=== PATIENT | female | born 1940 | race Caucasian/White ===

== ENCOUNTER 2018-03-09 14:17 | Observation (INO) ==
[2018-03-09] MEDS ORDERED: Morphine Sulfate Inj 2 MG/ML Vial IV.PUSH ONE (14:50)
--- NOTE | 2018-03-09 14:57 | ED ---
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 The patient reports that at around 11:00 AM the patient was sitting on her bed when she reached behind her and attempting to hang something on the back of her wheelchair she fell forward, and noticed immediate pain to her right shoulder. She denies head injury or LOC. She denies any other injuries. Her pain is 9 out of 10, constant, worse with movements and palpation. She is experiencing a slight numbness/tingling sensation in her right hand which is new for her. She denies head neck or back pain or injury. No chest pain or dyspnea. No abdominal pain. She states that she uses her right arm primarily to care for herself and her . Related Data Home Medications Medication Instructions Recorded Confirmed No Known Home Medications 03/09/18 03/09/18 Allergies Allergy/AdvReac Type Severity Reaction Status Date / Time No Known Allergies Allergy Verified 03/09/18 14:50 Review of Systems ROS: all other systems reviewed are negative [facility] Medical History Medical History Polio (Acute) Surgical History Surgical History History of hip surgery (Acute) Social History Social History Substance History: No History of Abuse Second Hand Smoke Exposure: No Smoking Status: Former smoker Tobacco Type: Cigarettes How Often Do You Have a Drink Containing Alcohol: Never Recent Travel in [facility] within the Last 8 Weeks: No Recent Out of Country Travel within the Last 8 Weeks: No Immunization History Tetanus Immunization: Unsure Exam Narrative Exam Narrative: GENERAL: Small for age with chronic upper and lower extremity limb deformities secondary to polio at the age of 4, awake, alert, pleasant, no apparent distress. SKIN: Focused skin assessment warm/dry. Diffuse ecchymosis and significant edema to the right shoulder. No lacerations or abrasions. HEAD: Atraumatic. Normocephalic. EYES: Pupils equal and round. No scleral icterus. No injection or drainage. ENT: No nasal bleeding or discharge. Mucous membranes pink and moist. NECK: Trachea midline. No JVD. CARDIOVASCULAR: Regular rate and rhythm. Distal pulses brisk and equal bilaterally. RESPIRATORY: No accessory muscle use. Clear to auscultation. Breath sounds equal bilaterally. GASTROINTESTINAL: Abdomen soft, non-tender, nondistended. MUSCULOSKELETAL: Chronic limb deformities in bilateral upper and lower extremities. Significant edema to the right shoulder with diffuse ecchymosis and significant tenderness to the shoulder and humerus. No tenderness to the right elbow or right hand. The rest of her joints and extremities show chronic deformities without tenderness or edema. NEUROLOGICAL: Awake and alert. No obvious cranial nerve deficits. Motor grossly within normal limits. Normal speech. PSYCHIATRIC: Appropriate mood and affect; insight and judgment normal. Procedures Orthopedic Joint Reduction Right Shoulder: Time Out Performed: Yes Side: right Joint Reduction Location: shoulder Analgesia: other (4mg IV Morphine) Shoulder Technique Used (if applicable): scapula manipulation and external rotation Technique Used: direct manipulation Post-Reduction Neuro Exam: intact Post-Reduction Vascular Exam: intact Post Reduction X-Ray Obtained: Yes Post Reduction X-Ray Results: reduced Splint Applied: Yes Patient Tolerated Procedure: well Course Initial Documented Vital Signs Temperature 97.8 F 03/09/18 14:38 Pulse Rate 68 03/09/18 14:38 Respiratory Rate 18 03/09/18 14:38 Blood Pressure 127/78 03/09/18 14:38 Pulse Oximetry 100 03/09/18 14:38 Last Documented Vital Signs Temperature 97.8 F 03/09/18 14:38 Pulse Rate 68 03/09/18 17:30 Respiratory Rate 18 03/09/18 17:30 Blood Pressure 158/77 H 03/09/18 17:30 Pulse Oximetry 99 03/09/18 17:59 Medical Decision Making MDM Narrative Medical decision making narrative: Vital signs reviewed and are within normal limits. Right humerus and right shoulder x-ray shows anterior dislocation. Patient was given 4 mg of IV morphine shortly after arriving to the emergency department. She was made aware of x-ray findings. I attempted to manipulate the right upper extremity and right shoulder while the patient was awake, not under sedation, and by gentle traction with adduction and external rotation, the right shoulder dislocation was felt to be reduced. Post reduction the patient had brisk distal pulses and improved sensation to her hand. The right upper extremity was placed in a sling and swath, however there is a moderate amount of crepitus palpated at the right shoulder joint. Postreduction x-rays will be ordered. Postreduction x-rays reviewed by me shows that the right shoulder dislocation has been reduced. I do not see an obvious Bankart lesion or Hill-Sachs lesion. Patient is 77 years old with history of polio, uses a wheelchair to get around, uses her right upper extremity predominantly to care for herself lives with her who has dementia and diminished vision, is his primary check weigher for her . Because of these issues and the fact that the patient has a right upper extremity injury/right shoulder dislocation that is now placed in a sling and swath, the patient will be unable to care for herself or her at home. Her 's brother has actually picked him up and took him to his own house. Patient will not be able to care for herself if discharged home, and because of this she will be admitted to the medical service for case management assessment for either custodial placement or home health arrangement. The patient is amenable to this plan. Case discussed with hospitalist Dr. Ascencio who will admit patient to his service for observation and case management. Medical Screen Exam Complete: Yes Emergency Medical Condition: Yes Differential Diagnosis Differential Diagnosis: Proximal humerus fracture, shoulder dislocation, shoulder fracture Lab Data Result diagrams: 03/09/18 15:30 03/09/18 15:30 Lab Results 03/09/18 03/09/18 03/09/18 Range/Units 15:26 15:30 15:30 WBC 8.5 (4.0-11.0) th/mm3 RBC 4.36 (4.00-5.30) mil/mm3 Hgb 13.7 (11.6-15.3) gm/dL Hct 41.0 (35.0-46.0) % MCV 94.0 (80.0-100.0) fL MCH 31.5 (27.0-34.0) pg MCHC 33.5 (32.0-36.0) % RDW 14.0 (11.6-17.2) % Plt Count 274 (150-450) th/mm3 MPV 8.1 (7.0-11.0) fL PT 10.5 (9.8-11.6) sec INR 1.0 Ratio APTT 27.3 (23.4-31.7) sec Sodium (136-145) meq/L Potassium (3.5-5.1) meq/L Chloride (98-107) meq/L Carbon Dioxide (21.0-32.0) meq/L Anion Gap (5-15) meq/L BUN (7-18) mg/dL Creatinine (0.50-1.00) mg/dL Estimated GFR (>89) mL/min Random Glucose (74-106) mg/dL Calcium (8.5-10.1) mg/dL Total Bilirubin (0.2-1.0) mg/dL AST (15-37) U/L ALT (10-53) U/L Alkaline Phosphatase (45-117) U/L Total Protein (6.4-8.2) g/dL Albumin (3.4-5.0) g/dL Urine Color Yellow (Yellw/Straw) Urine Clarity Hazy H (Clear) Urine pH 7.0 (5.0-8.5) Ur Specific [place] 1.012 (1.002-1.035) Urine Protein Negative (Neg-Trace) mg/dL Urine Glucose (UA) Negative (Negative) mg/dL Urine Ketones 20 (Negative) mg/dL Urine Occult Blood Small H (Negative) Urine Nitrate Negative (Negative) Urine Bilirubin Negative (Negative) Urine Urobilinogen Less than 2 (Less than 2) mg/dL Ur Leukocyte Esterase Negative (Negative) Urine RBC 1 (0-3) /hpf Urine WBC 2 (0-5) /hpf Amorphous Sediment Moderate H (None) /hpf Urine Mucus Few H (Occasional) /lpf Micro UA Comment Culture not ind Ur Microscopic Review Not Reportable Urine Culture Comments Culture not ind 03/09/18 Range/Units 15:30 WBC (4.0-11.0) th/mm3 RBC (4.00-5.30) mil/mm3 Hgb (11.6-15.3) gm/dL Hct (35.0-46.0) % MCV (80.0-100.0) fL MCH (27.0-34.0) pg MCHC (32.0-36.0) % RDW (11.6-17.2) % Plt Count (150-450) th/mm3 MPV (7.0-11.0) fL PT (9.8-11.6) sec INR Ratio APTT (23.4-31.7) sec Sodium 133 L (136-145) meq/L Potassium 3.1 L (3.5-5.1) meq/L Chloride 95 L (98-107) meq/L Carbon Dioxide 30.5 (21.0-32.0) meq/L Anion Gap 8 (5-15) meq/L BUN 8 (7-18) mg/dL Creatinine 0.23 L (0.50-1.00) mg/dL Estimated GFR Greater than 89 (>89) mL/min Random Glucose 122 H (74-106) mg/dL Calcium 8.7 (8.5-10.1) mg/dL Total Bilirubin 0.4 (0.2-1.0) mg/dL AST 20 (15-37) U/L ALT 26 (10-53) U/L Alkaline Phosphatase 86 (45-117) U/L Total Protein 6.9 (6.4-8.2) g/dL Albumin 3.7 (3.4-5.0) g/dL Urine Color (Yellw/Straw) Urine Clarity (Clear) Urine pH (5.0-8.5) Ur Specific [place] (1.002-1.035) Urine Protein (Neg-Trace) mg/dL Urine Glucose (UA) (Negative) mg/dL Urine Ketones (Negative) mg/dL Urine Occult Blood (Negative) Urine Nitrate (Negative) Urine Bilirubin (Negative) Urine Urobilinogen (Less than 2) mg/dL Ur Leukocyte Esterase (Negative) Urine RBC (0-3) /hpf Urine WBC (0-5) /hpf Amorphous Sediment (None) /hpf Urine Mucus (Occasional) /lpf Micro UA Comment Ur Microscopic Review Urine Culture Comments Imaging Data Radiologist's impression: Chest X-Ray 03/09/18 14:50 CONCLUSION: No acute cardiopulmonary disease. Humerus X-Ray 03/09/18 14:50 CONCLUSION: Anterior dislocation of the right shoulder. Shoulder X-Ray 03/09/18 14:50 CONCLUSION: Anterior shoulder dislocation. Shoulder X-Ray 03/09/18 17:02 CONCLUSION: Reduction of the previously seen dislocation. Discharge Plan Discharge Disposition Patient Disposition: ED Admit(ED Internal Use Only) Discharge Condition Condition: Stable Discharge Order Discharge Orders: ED Use Only Admit Order (Routine); Ordered 03/09/18 Ordered By: Yogesh Arevalo Discharge Details Diagnosis: Anterior dislocation of right shoulder, Alteration in self-care ability Physicians Team ED Provider: Yogesh Arevalo Primary Care Provider: UNKNOWN, Attending Provider: Kieran Ascencio Other Providers: Inessa,Inessa Status ED Status: Left Department Discharge Information Discharge Date/Time: 03/09/18 19:03
[2018-03-09 15:57] LABS: Hemoglobin 13.7 gm/dL (11.6-15.3); Mean Corpuscular HGB Conc 33.5 % (32.0-36.0); Mean Corpuscular Hemoglobin 31.5 pg (27.0-34.0); Mean Platelet Volume 8.1 fL (7.0-11.0); Platelet Count 274 th/mm3 (150-450); Red Blood Count 4.36 mil/mm3 (4.00-5.30); White Blood Count 8.5 th/mm3 (4.0-11.0)
[2018-03-09 16:06] LABS: Activated Partial Thrombo Time 27.3 sec (23.4-31.7); Prothrombin Time 10.5 sec (9.8-11.6)
[2018-03-09 16:19] LABS: Amorphous Sediment,Urine Moderate /hpf; Bilirubin,Urine Negative (Negative); Clarity,Urine Hazy (Clear); Color,Urine Yellow (Yellw/Straw); Glucose,Urine (UA) Negative (Negative); Leukocyte Esterase,Urine Negative (Negative); Mucus,Urine Few /lpf (Occasional); Nitrite,Urine Negative (Negative); Specific Gravity,Urine 1.012 (1.002-1.035)
[2018-03-09 16:24] LABS: Albumin 3.7 g/dL (3.4-5.0); Anion Gap 8 meq/L (5-15); Aspartate Aminotransferase 20 U/L (15-37); Blood Urea Nitrogen 8 mg/dL (7-18); Calcium 8.7 mg/dL (8.5-10.1); Carbon Dioxide 30.5 meq/L (21.0-32.0); Chloride 95 meq/L (98-107); Glomerular Filtration Rate Greater Than 89 mL/min (>89); Glucose,Random 122 mg/dL (74-106); Potassium 3.1 meq/L (3.5-5.1); Sodium 133 meq/L (136-145)
[2018-03-09 16:25] LABS: Alanine Aminotransferase 26 U/L (10-53)
[2018-03-09 16:27] LABS: Alkaline Phosphatase 86 U/L (45-117); Total Protein 6.9 g/dL (6.4-8.2)
--- NOTE | 2018-03-09 16:45 | XR ---
EXAM DATE: 03/09/2018 4:38 PM EST AGE/SEX: 77 years / Female INDICATIONS: Pain from twisting motion in right shoulder. CLINICAL DATA: This is the patient's initial encounter. Patient reports that signs and symptoms have been present for 1 day and indicates a pain score of Nonresponsive. MEDICAL/SURGICAL HISTORY: None. None. COMPARISON: No prior exams available for comparison. FINDINGS: There is complete anterior dislocation of the humeral head out of the glenoid. 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 CONCLUSION: Anterior dislocation of the right shoulder. Electronically signed by: Reina Goldman MD Board Certified Radiologist 03/09/2018 4:44 PM EST
--- NOTE | 2018-03-09 16:49 | XR ---
EXAM DATE: 03/09/2018 4:39 PM EST AGE/SEX: 77 years / Female INDICATIONS: Pain from twisting motion in right shoulder. CLINICAL DATA: This is the patient's initial encounter. Patient reports that signs and symptoms have been present for 1 day and indicates a pain score of 10/10. MEDICAL/SURGICAL HISTORY: None. None. COMPARISON: No prior exams available for comparison. FINDINGS: There is complete anterior shoulder dislocation. Significant hypertrophic change is present with deformity of the acromion and distal clavicle probably due to old trauma with dystrophic calcif ications. CONCLUSION: Anterior shoulder dislocation. Electronically signed by: Reina oGldman MD Board Certified Radiologist 03/09/2018 4:48 PM EST
--- NOTE | 2018-03-09 16:49 | XR ---
EXAM DATE: 03/09/2018 4:38 PM EST AGE/SEX: 77 years / Female INDICATIONS: Pain from twisting motion in right shoulder. CLINICAL DATA: This is the patient's initial encounter. Patient reports that signs and symptoms have been present for 1 day and indicates a pain score of 10/10. MEDICAL/SURGICAL HISTORY: None. None. COMPARISON: No prior exams available for comparison. FINDINGS: The lungs are clear without infiltrate, nodule, or mass. There is no appreciable pleural effusion fo r technique. Heart and mediastinum are unremarkable. Significant thoracic scoliosis is seen with mcgovern perimposed degenerative change. There is anterior dislocation of the right shoulder. CONCLUSION: No acute cardiopulmonary disease. Electronically signed by: Reina Goldman MD Board Certified Radiologist 03/09/2018 4:48 PM EST
--- NOTE | 2018-03-09 17:25 | XR ---
EXAM DATE: 03/09/2018 5:21 PM EST AGE/SEX: 77 years / Female INDICATIONS: Post reduction of the right shoulder. CLINICAL DATA: This is the patient's subsequent encounter. Patient reports that signs and symptoms h ave been present for 1 day and indicates a pain score of 7/10. MEDICAL/SURGICAL HISTORY: None. None. COMPARISON: [facility] [place], SHOULDER LIMITED RIGHT 2V, 03/09/2018. . FINDINGS: Previously seen dislocation has been reduced. CONCLUSION: Reduction of the previously seen dislocation. Electronically signed by: Reina Goldman MD Board Certified Radiologist 03/09/2018 5:24 PM EST
[2018-03-09] MEDS ORDERED: Acetaminophen 325 MG Tablet PO PRN (17:34)
[2018-03-09] MEDS ORDERED: Bisacodyl 10 MG Supp RECTAL PRN (17:34)
[2018-03-09] MEDS ORDERED: Temazepam 15 MG Capsule PO PRN (17:34)
--- NOTE | 2018-03-09 18:01 | P.HPIM ---
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 She is able to care for herself and uses a wheelchair to get around. She can not move her legs at baseline and her right arm is the primary one that functions for her to get around. 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 The patient reports that at around 11:00 AM the patient was sitting on her bed when she reached behind her and attempting to hang something on the back of her wheelchair she fell forward onto her out stretched arm, and noticed immediate pain to her right shoulder. She denies head injury or LOC. She denies any other injuries. Her pain is 7 out of 10 following pain medications, worse with movements and palpation. She denies head neck or back pain or injury. No chest pain or dyspnea. No abdominal pain. She states that she uses her right arm primarily to care for herself and her . She was found to have dislocation of her right shoulder. In the ED her shoulder was reset. she is no longer have numbness and tingling in her fingers. - Diagnosis (1) Anterior dislocation of right shoulder (2) Alteration in self-care ability Review of Systems Constitutional: Reports weakness, Denies chills, Denies increased appetite, Denies lack of energy, Denies weight gain Eyes: Denies blind spots, Denies blurry vision, Denies change in vision Ears, Nose, Mouth, and Throat: Denies abnormal hearing, Denies bleeding gums, Denies neck pain, Denies post nasal drip, Denies sore throat Cardiovascular: Denies chest pain, Denies chest pain at rest, Denies shortness of breath Respiratory: Denies chest congestion, Denies cough, Denies shortness of breath, Denies wheezing Gastrointestinal: Denies abdominal pain, Denies nausea, Denies vomiting Musculoskeletal: Reports abnormal walking (Wheelchair-bound due to residual muscle deformities from polio), Reports limited joint movement, Reports muscle cramps, Reports muscle weakness, Reports numbness, Reports radiating pain into limb, Reports stiffness, Reports tingling Skin/Breast: Denies rash Neurologic: Denies abnormal movements, Denies abnormal speech, Denies confusion , Denies dizziness, Denies lack of coordination, Denies localized weakness, Denies seizure-like activity Psychiatric: Denies anxiety, Denies depression PMFSH - History History Provided By: Patient - Medical History Medical History: Medical History (Last Updated 03/09/18 @ 14:40 by Judith Greco RN) Polio - Surgical History Surgical History: Surgical History (Last Updated 03/09/18 @ 14:40 by Judith Greco RN) History of hip surgery - Social History I have reviewed the patient's Social History: Yes - Tobacco History Second Hand Smoke Exposure: No Tobacco Use In Past 30 Days: No Smoking Status: Former smoker Tobacco Type: Cigarettes - Alcohol History How Often Do You Have a Drink Containing Alcohol: Never - Substance Use History Substance History: No History of Abuse - Travel History Recent Travel in the [facility] Within the Last 8 Weeks: No Recent Travel Out of the Country Within the Last 8 Weeks: No - Immunization History Tetanus Immunization: Unsure Medications and Allergies Active Medications: Active Medications Acetaminophen (Tylenol) 650 mg PO Q4H PRN PRN Reason: Temp > 100.4 Hydrocodone Bitart/Acetaminophen ([place] 5/325) 1 tab PO Q4H PRN PRN Reason: PAIN SCALE 6 TO 10 Al Hydroxide/Mg Hydroxide (Milk Of Magnesia Liq) 30 ml PO Q12H PRN PRN Reason: Mild Constipation Bisacodyl (Dulcolax Supp) 10 mg RECTAL DAILY PRN PRN Reason: SEVERE CONSITIPATION Heparin Sodium (Porcine) (Heparin Inj) 5,000 units SQ Q8H NUBIA Sodium Chloride (Ns Inj) 1,000 mls @ 75 mls/hr IV.CONT .[id number] NUBIA Lactulose (Lactulose Liq) 30 ml PO DAILY PRN PRN Reason: SEVERE CONSITIPATION Ondansetron HCl (Zofran Inj) 4 mg IV.PUSH Q6H PRN PRN Reason: NAUSEA OR VOMITING Senna/Docusate Sodium (Simin-Colace) 1 tab PO BID NUBIA Sennosides (Senokot) 17.2 mg PO Q12H PRN PRN Reason: Moderate Constipation Sodium Chloride (Ns Flush) 2 ml IV.FLUSH BID NUBIA Sodium Chloride (Ns Flush) 2 ml IV.FLUSH PRN PRN PRN Reason: FLUSH AFTER USING IV ACCESS Temazepam (Restoril) 15 mg PO HS PRN PRN Reason: INSOMNIA Allergies Allergy/AdvReac Type Severity Reaction Status Date / Time No Known Allergies Allergy Verified 03/09/18 14:50 Home Medications Medication Instructions Recorded Confirmed Type No Known Home Medications 03/09/18 03/09/18 History Exam Vital signs: Vital Signs 03/09/18 14:38 Temperature 97.8 F Pulse Rate 68 Respiratory Rate 18 Blood Pressure 127/78 Pulse Oximetry 100 - Constitutional no acute distress, thin, cooperative - Routine HEENT Exam Head: Present: normocephalic, atraumatic Eye: Present: EOMI, PERRL ENT: Present: mucous membranes moist. Absent: dentition normal - Routine Neck Exam Present: supple, full ROM. Absent: JVD - Routine Chest/Breast/Axilla Exam Chest wall: Absent: tenderness - Routine Respiratory Exam Present: CTA bilaterally. Absent: accessory muscle use, wheezes - Routine Cardiovascular Exam Present: RRR - Routine Abdominal Exam Present: soft, normoactive bowel sounds. Absent: tenderness - Routine Extremities Exam Present: joint swelling. Absent: cyanosis, clubbing, edema Comments: Deformity of the legs bilaterally, weakness of the left shoulder at baseline, right shoulder in sling status post-placement into the joint - Routine Skin Exam Present: intact. Absent: rash - Routine Neurological Exam Present: alert, oriented X3, CN II-XII intact. Absent: moving all extremities ( Her baseline) Results - Labs CBC & Chem 7: 03/09/18 15:30 03/09/18 15:30 Labs: Short CBC 03/09/18 Range/Units 15:30 WBC 8.5 (4.0-11.0) th/mm3 Hgb 13.7 (11.6-15.3) gm/dL Hct 41.0 (35.0-46.0) % Plt Count 274 (150-450) th/mm3 BMP 03/09/18 15:30 Sodium 133 L Potassium 3.1 L Chloride 95 L Carbon Dioxide 30.5 BUN 8 Creatinine 0.23 L Calcium 8.7 Liver Function 03/09/18 Range/Units 15:30 Total Bilirubin 0.4 (0.2-1.0) mg/dL AST 20 (15-37) U/L ALT 26 (10-53) U/L Alkaline Phosphatase 86 (45-117) U/L Albumin 3.7 (3.4-5.0) g/dL Urine 03/09/18 Range/Units 15:26 Urine Color Yellow (Yellw/Straw) Urine Clarity Hazy H (Clear) Urine pH 7.0 (5.0-8.5) Ur Specific [place] 1.012 (1.002-1.035) Urine Protein Negative (Neg-Trace) mg/dL Urine Glucose (UA) Negative (Negative) mg/dL - Imaging Impressions Chest X-Ray 03/09/18 14:50 CONCLUSION: No acute cardiopulmonary disease. Humerus X-Ray 03/09/18 14:50 CONCLUSION: Anterior dislocation of the right shoulder. Shoulder X-Ray 03/09/18 14:50 CONCLUSION: Anterior shoulder dislocation. Shoulder X-Ray 03/09/18 17:02 CONCLUSION: Reduction of the previously seen dislocation. Caprini VTE Risk Assessment Caprini VTE Risk Assessment: Moderate/High Risk (score >= 2) (SCDs) Caprini Risk Assessment Model: Point Value = 1 Point Value = 2 Point Value = 3 Point Value = 5 Age 41-60 Minor surgery BMI > 25 kg/m2 Swollen legs Varicose veins or History of unexplained or recurrent spontaneous Oral contraceptives or hormone replacement Sepsis (< 1 month) Serious lung disease, including pneumonia (< 1 month) Abnormal pulmonary function Acute myocardial infarction Congestive heart failure (< 1 month) History of inflammatory bowel disease Medical patient at bed rest Age 61-74 Arthroscopic surgery Major open surgery (> 45 min) Laparoscopic surgery (> 45 min) Malignancy Confined to bed (> 72 hours) Immobilizing plaster cast Central venous access Age >= 75 History of VTE Family history of VTE Factor V Leiden Prothrombin [id number] Lupus anticoagulant Anticardiolipin antibodies Elevated serum homocysteine Heparin-induced thrombocytopenia Other congenital or acquired thrombophilia Stroke (< 1 month) Elective arthroplasty Hip, pelvis, or leg fracture Acute spinal cord injury (< 1 month) Prophylaxis Regimen: Total Risk Factor Score Risk Level Prophylaxis Regimen 0-1 Low Early ambulation 2 Moderate Order ONE of the following: *Sequential Compression Device (SCD) *Heparin 5000 units SQ BID 3-4 Higher Order ONE of the following medications: *Heparin 5000 units SQ TID *Enoxaparin/Lovenox 40 mg SQ daily (WT < 150 kg, CrCl > 30 mL/min) *Enoxaparin/Lovenox 30 mg SQ daily (WT < 150 kg, CrCl > 10-29 mL/min) *Enoxaparin/Lovenox 30 mg SQ BID (WT < 150 kg, CrCl > 30 mL/min) AND/OR *Sequential Compression Device (SCD) 5 or more Highest Order ONE of the following medications: *Heparin 5000 units SQ TID (Preferred with Epidurals) *Enoxaparin/Lovenox 40 mg SQ daily (WT < 150 kg, CrCl > 30 mL/min) *Enoxaparin/Lovenox 30 mg SQ daily (WT < 150 kg, CrCl > 10-29 mL/min) *Enoxaparin/Lovenox 30 mg SQ BID (WT < 150 kg, CrCl > 30 mL/min) AND *Sequential Compression Device (SCD) Assessment and Plan - Assessment (1) Anterior dislocation of right shoulder Code(s): S43.014A - Anterior dislocation of right humerus, initial encounter Status: Acute (2) Alteration in self-care ability Code(s): R53.81 - Other malaise Status: Acute - Plan This is a 77-year-old female with past medical history significant for polio that has resulted in multiple muscle and joint deformities. She is wheelchair-bound. She only can move her right arm for mobility. Unfortunately her right arm was dislocated due to a fall, and has been relocated back into the joint. At this time concerned that the patient will not be able to care for herself and her significant other at home alone. Will be admitted and case management consulted for placement. 1. Right shoulder dislocation -Should joint was reset -Pain control with norco and morphine -PT consulted -Incurrent state patient will be unable to care for her self at home -Consulted case management 2. Polio residual muscle and bone weakness and deformities. unable to care for self at this time as she is wheel chair bound and only functioning arm is in a sling Regular diet Monitor electrolytes replace accordingly DVT prophylaxis with SCDs Code Status: full code Discharge Planning: case management consulted for placement (1) Anterior dislocation of right shoulder Qualifiers: Encounter type: initial encounter Qualified Code(s): S43.014A - Anterior dislocation of right humerus, initial encounter
[2018-03-09] MEDS: Heparin - SQ 10,000 UNITS/ML Vial SQ SCH (23:09)
[2018-03-09] MEDS: Senna/Docusate Sodium 8.6/50 MG Tablet PO SCH (23:10)
[2018-03-09] MEDS: Sod Chloride 0.9% Inj 1,000 ML IV.CONT SCH (23:11)
[2018-03-09] MEDS: Morphine Sulfate Inj 2 MG/ML Vial IV.PUSH PRN (23:56)
[2018-03-10] MEDS: Heparin - SQ 10,000 UNITS/ML Vial SQ SCH ×3 (06:37→21:54)
[2018-03-10] MEDS: Senna/Docusate Sodium 8.6/50 MG Tablet PO SCH ×2 (08:29→21:54)
[2018-03-10 10:58] LABS: Baso % (Auto) 0.2 % (0.0-2.0); Eos % (Auto) 0.1 % (0.0-4.0); Hematocrit 36.8 % (35.0-46.0); Hemoglobin 12.2 gm/dL (11.6-15.3); Lymph # (Auto) 1.5 th/mm3 (1.0-4.8); Lymph % (Auto) 14.8 % (9.0-44.0); Mean Corpuscular Hemoglobin 31.5 pg (27.0-34.0); Mean Corpuscular Volume 95.3 fL (80.0-100.0); Mean Platelet Volume 8.2 fL (7.0-11.0); Mono # (Auto) 0.9 th/mm3 (0.0-0.9); Mono % (Auto) 8.6 % (0.0-8.0); Neut # (Auto) 7.7 th/mm3 (1.8-7.7); Neut % (Auto) 76.3 % (16.0-70.0); Platelet Count 260 th/mm3 (150-450); Red Blood Count 3.86 mil/mm3 (4.00-5.30); Red Cell Distribution Width 14.2 % (11.6-17.2); White Blood Count 10.2 th/mm3 (4.0-11.0)
[2018-03-10 11:39] LABS: Alanine Aminotransferase 20 U/L (10-53); Albumin 3.1 g/dL (3.4-5.0); Alkaline Phosphatase 72 U/L (45-117); Anion Gap 8 meq/L (5-15); Aspartate Aminotransferase 19 U/L (15-37); Blood Urea Nitrogen 13 mg/dL (7-18); Calcium 8.1 mg/dL (8.5-10.1); Carbon Dioxide 27.4 meq/L (21.0-32.0); Chloride 98 meq/L (98-107); Glomerular Filtration Rate Greater Than 89 mL/min (>89); Glucose,Random 101 mg/dL (74-106); Potassium 3.2 meq/L (3.5-5.1); Sodium 133 meq/L (136-145); Total Protein 6.3 g/dL (6.4-8.2)
[2018-03-10] MEDS: Sod Chloride 0.9% Inj 1,000 ML IV.CONT SCH ×2 (13:14→21:59)
--- NOTE | 2018-03-10 16:36 | P.PNIM ---
Subjective Interval history: Follow-up right shoulder dislocation status post joint reset Patient was seen and examined while resting in bed. She continues to experience severe right shoulder pain that she rates as a 9-10 out of 10. Patient relies on her right upper extremity for most of her daily functions. 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 Discussed with the patient if she had considered long-term placement in the past. She states she has however is not ready at this point in time. She is open to short-term rehab for rehabilitation of her right shoulder. Patient denies any numbness or tingling to her right upper extremity. Physical Exam Vital signs: Last Vital Signs Temp 98.3 F 03/10/18 04:00 Pulse 84 03/10/18 08:00 Resp 16 03/10/18 08:00 BP 104/55 L 03/10/18 08:00 Pulse Ox 97 03/10/18 10:24 Intake & Output 03/08/18 03/09/18 03/10/18 03/11/18 06:59 06:59 06:59 06:59 Intake Total 1000 / 1000 Output Total 300 / 300 Balance -300 / -300 1000 / 1000 Weight 40.9 kg Narrative: GENERAL: mild distress secondary to right shoulder pain SKIN: Warm and dry. HEAD: Normocephalic. EYES: No scleral icterus. No injection or drainage. NECK: Supple, trachea midline. No JVD or lymphadenopathy. CARDIOVASCULAR: Regular rate and rhythm without murmurs, gallops, or rubs. RESPIRATORY: Breath sounds equal bilaterally. No accessory muscle use. GASTROINTESTINAL: Abdomen soft, non-tender, nondistended. MUSCULOSKELETAL: deformity bilateral lower extremities, weakness left shoulder at baseline, right shoulder s/p reset in sling BACK: Nontender without obvious deformity. No CVA tenderness. Urinary Catheter Management Indwelling Urethral Catheter: Cath placed during this visit: yes Urethral indwelling: No Insertion date: 03/09/18 Insertion time: 15:26 Results Labs CBC & Chem 7: 03/10/18 10:16 03/10/18 10:16 Imaging Imaging: Impressions Chest X-Ray 03/09/18 14:50 CONCLUSION: No acute cardiopulmonary disease. Humerus X-Ray 03/09/18 14:50 CONCLUSION: Anterior dislocation of the right shoulder. Shoulder X-Ray 03/09/18 14:50 CONCLUSION: Anterior shoulder dislocation. Shoulder X-Ray 03/09/18 17:02 CONCLUSION: Reduction of the previously seen dislocation. Assessment and Plan (1) Anterior dislocation of right shoulder: Code(s): S43.014A - Anterior dislocation of right humerus, initial encounter Status: Acute (2) Alteration in self-care ability: Code(s): R53.81 - Other malaise Status: Acute Plan Patient is a very pleasant 77-year-old female with a past medical history significant for polio that has resolved multiple muscle and joint deformities. She is wheelchair-bound at baseline. She is only able to move her right upper extremity for mobility. Patient presented to the hospital status post dislocation of right shoulder secondary to fall injury. Right shoulder dislocation s/p reduction in ED, repeat X-ray showing reduction of previously seen dislocation Continue pain meds as needed PT eval and treat -Concern for being unable to care for herself upon returning home. CM has been consulted for assistance with placement Hyponatremia -unchanged from admission -monitor Hypokalemia -replace with PO supplementation -repeat level in am History of polio Patient with residual muscle and bone weakness as well as deformities. She is wheelchair-bound at baseline and is unable to care for herself at present time secondary to her right upper extremity pain in a sling. MDM: self Code: Full GI ppx: PO intake DVT ppx: SCD's Code Status: Full Discussed Condition With: RN, patient Discharge Planning: Patient open to STR Progress Note: Quality VTE Deep Vein Thrombosis/Pulmonary Embolism Present on Admission: No _ (1) Anterior dislocation of right shoulder Qualifiers: Encounter type: initial encounter Qualified Code(s): S43.014A - Anterior dislocation of right humerus, initial encounter
[2018-03-10] MEDS ORDERED: Potassium Bicarbonate 25 MEQ Effervescent Tablet PO ONE (17:00)
[2018-03-11] MEDS: Morphine Sulfate Inj 2 MG/ML Vial IV.PUSH PRN (02:31)
[2018-03-11] MEDS: Sod Chloride 0.9% Inj 1,000 ML IV.CONT SCH ×3 (03:58→22:31)
[2018-03-11] MEDS: Heparin - SQ 10,000 UNITS/ML Vial SQ SCH ×3 (06:42→21:35)
[2018-03-11 07:45] LABS: Baso % (Auto) 0.2 % (0.0-2.0); Eos % (Auto) 0.1 % (0.0-4.0); Hematocrit 31.3 % (35.0-46.0); Hemoglobin 10.9 gm/dL (11.6-15.3); Lymph % (Auto) 11.2 % (9.0-44.0); Mean Corpuscular HGB Conc 34.7 % (32.0-36.0); Mean Corpuscular Hemoglobin 32.1 pg (27.0-34.0); Mean Corpuscular Volume 92.4 fL (80.0-100.0); Mean Platelet Volume 8.5 fL (7.0-11.0); Mono # (Auto) 1.2 th/mm3 (0.0-0.9); Mono % (Auto) 13.6 % (0.0-8.0); Neut # (Auto) 6.4 th/mm3 (1.8-7.7); Neut % (Auto) 74.9 % (16.0-70.0); Platelet Count 186 th/mm3 (150-450); Red Blood Count 3.39 mil/mm3 (4.00-5.30); Red Cell Distribution Width 14.1 % (11.6-17.2); White Blood Count 8.6 th/mm3 (4.0-11.0)
[2018-03-11 07:47] LABS: Anion Gap 5 meq/L (5-15); Blood Urea Nitrogen 6 mg/dL (7-18); Calcium 8.2 mg/dL (8.5-10.1); Carbon Dioxide 28.8 meq/L (21.0-32.0); Chloride 100 meq/L (98-107); Glomerular Filtration Rate Greater Than 89 mL/min (>89); Glucose,Random 99 mg/dL (74-106); Potassium 3.7 meq/L (3.5-5.1)
[2018-03-11 07:54] LABS: Sodium 134 meq/L (136-145)
[2018-03-11] MEDS: Senna/Docusate Sodium 8.6/50 MG Tablet PO SCH ×2 (09:15→21:35)
--- NOTE | 2018-03-11 16:37 | P.PNIM ---
Subjective Interval history: Follow-up right shoulder dislocation status post reduction Patient is resting in bed. She reports an out of 10 right shoulder pain. She is inquiring about rehab placement. Advised patient that case management is working on this and once it is approved we will could start her discharge process. Patient is also very concerned about her who has dementia and lives home alone. She states she currently has family who is visiting and caring for him but she is not sure what will happen after the leave. Assisted patient with repositioning her legs. No further needs voiced at this time. Physical Exam Vital signs: Last Vital Signs Temp 98.9 F 03/11/18 07:40 Pulse 106 H 03/11/18 11:30 Resp 20 03/11/18 11:30 BP 115/65 03/11/18 11:30 Pulse Ox 95 03/11/18 11:30 Intake & Output 03/09/18 03/10/18 03/11/18 03/12/18 06:59 06:59 06:59 06:59 Intake Total 2680 / 2680 100 / 100 Output Total 300 / 300 850 / 850 Balance -300 / -300 1830 / 1830 100 / 100 Weight 40.9 kg 40.9 kg Narrative: GENERAL: mild distress secondary to right shoulder pain SKIN: Warm and dry. HEAD: Normocephalic. EYES: No scleral icterus. No injection or drainage. NECK: Supple, trachea midline. No JVD or lymphadenopathy. CARDIOVASCULAR: Regular rate and rhythm without murmurs, gallops, or rubs. RESPIRATORY: Breath sounds equal bilaterally. No accessory muscle use. GASTROINTESTINAL: Abdomen soft, non-tender, nondistended. MUSCULOSKELETAL: deformity bilateral lower extremities, weakness left shoulder at baseline, right shoulder s/p reset in sling BACK: Nontender without obvious deformity. No CVA tenderness. Urinary Catheter Management Indwelling Urethral Catheter: Cath placed during this visit: yes Urethral indwelling: No Insertion date: 03/09/18 Insertion time: 15:26 Results Labs CBC & Chem 7: 03/11/18 07:12 03/11/18 07:12 Assessment and Plan (1) Anterior dislocation of right shoulder: Code(s): S43.014A - Anterior dislocation of right humerus, initial encounter Status: Acute (2) Alteration in self-care ability: Code(s): R53.81 - Other malaise Status: Acute Plan Patient is a very pleasant 77-year-old female with a past medical history significant for polio that has resolved multiple muscle and joint deformities. She is wheelchair-bound at baseline. She is only able to move her right upper extremity for mobility. Patient presented to the hospital status post dislocation of right shoulder secondary to fall injury. Right shoulder dislocation s/p reduction in ED, repeat X-ray showing reduction of previously seen dislocation Continue pain meds as needed PT eval and treat, rec STR -Concern for being unable to care for herself upon returning home. CM has been consulted for assistance with placement Hyponatremia - slightly improved -monitor Hypokalemia - resolved History of polio Patient with residual muscle and bone weakness as well as deformities. She is wheelchair-bound at baseline and is unable to care for herself at present time secondary to her right upper extremity pain in a sling. MDM: self Code: Full GI ppx: PO intake DVT ppx: SCD's Discharge Planning: Patient open to STR Progress Note: Quality VTE Deep Vein Thrombosis/Pulmonary Embolism Present on Admission: No _ (1) Anterior dislocation of right shoulder Qualifiers: Encounter type: initial encounter Qualified Code(s): S43.014A - Anterior dislocation of right humerus, initial encounter
[2018-03-12] MEDS: Heparin - SQ 10,000 UNITS/ML Vial SQ SCH ×4 (05:39→21:07)
[2018-03-12] MEDS: Sod Chloride 0.9% Inj 1,000 ML IV.CONT SCH ×3 (05:41→19:04)
[2018-03-12] MEDS: Senna/Docusate Sodium 8.6/50 MG Tablet PO SCH ×2 (09:04→20:56)
--- NOTE | 2018-03-12 13:57 | P.PNIM ---
Subjective Interval history: Follow-up right shoulder dislocation status post reduction Patient seen and examined while resting in bed. She is requesting for assistance with repositioning her lower extremities. Patient is tolerating p.o. intake. Case management assisting with short-term rehab placement and patient is in agreement. She denies any other discomfort. Physical Exam Vital signs: Last Vital Signs Temp 98.2 F 03/12/18 12:00 Pulse 97 H 03/12/18 12:00 Resp 18 03/12/18 12:00 BP 134/69 03/12/18 12:00 Pulse Ox 93 L 03/12/18 12:00 Intake & Output 03/10/18 03/11/18 03/12/18 03/13/18 06:59 06:59 06:59 06:59 Intake Total 2680 / 2680 460 / 460 Output Total 300 / 300 850 / 850 1400 / 1400 Balance -300 / -300 1830 / 1830 -940 / -940 Weight 40.9 kg 40.9 kg Narrative: GENERAL: mild distress secondary to right shoulder pain SKIN: Warm and dry. HEAD: Normocephalic, atraumatic EYES: No scleral icterus. No injection or drainage. NECK: Supple, trachea midline. No JVD or lymphadenopathy. CARDIOVASCULAR: Regular rate and rhythm without murmurs, gallops, or rubs. RESPIRATORY: Breath sounds equal bilaterally. No accessory muscle use. GASTROINTESTINAL: Abdomen soft, non-tender, nondistended. MUSCULOSKELETAL: deformity bilateral lower extremities, weakness left shoulder at baseline, right shoulder s/p reduction in ED BACK: Nontender without obvious deformity. No CVA tenderness. Urinary Catheter Management Indwelling Urethral Catheter: Cath placed during this visit: yes Urethral indwelling: No Insertion date: 03/09/18 Insertion time: 15:26 Results Labs CBC & Chem 7: 03/11/18 07:12 03/11/18 07:12 Assessment and Plan (1) Anterior dislocation of right shoulder: Code(s): S43.014A - Anterior dislocation of right humerus, initial encounter Status: Acute (2) Alteration in self-care ability: Code(s): R53.81 - Other malaise Status: Acute Plan Patient is a very pleasant 77-year-old female with a past medical history significant for polio that has resolved multiple muscle and joint deformities. She is wheelchair-bound at baseline. She is only able to move her right upper extremity for mobility. Patient presented to the hospital status post dislocation of right shoulder secondary to fall injury. Right shoulder dislocation s/p reduction in ED, repeat X-ray showing reduction of previously seen dislocation continue pain meds as needed, added Motrin PT eval and treat, rec STR -Concern for being unable to care for herself upon returning home. CM has been consulted for assistance with placement Hyponatremia - slightly improved -monitor Hypokalemia - resolved History of polio Patient with residual muscle and bone weakness as well as deformities. She is wheelchair-bound at baseline and is unable to care for herself at present time secondary to her right upper extremity pain in a sling. MDM: self Code: Full GI ppx: PO intake DVT ppx: Heparin SQ Discussed Condition With: RN, patient Discharge Planning: CM assisting with short term rehab placement Progress Note: Quality VTE Deep Vein Thrombosis/Pulmonary Embolism Present on Admission: No _ (1) Anterior dislocation of right shoulder Qualifiers: Encounter type: initial encounter Qualified Code(s): S43.014A - Anterior dislocation of right humerus, initial encounter
[2018-03-12] MEDS: Ibuprofen 600 MG Tablet PO PRN (14:33)
[2018-03-13] MEDS: Sod Chloride 0.9% Inj 1,000 ML IV.CONT SCH ×4 (01:42→21:22)
[2018-03-13] MEDS: Heparin - SQ 10,000 UNITS/ML Vial SQ SCH ×3 (05:10→21:23)
[2018-03-13] MEDS: Senna/Docusate Sodium 8.6/50 MG Tablet PO SCH ×2 (09:45→22:47)
[2018-03-13] MEDS: Ibuprofen 600 MG Tablet PO PRN (12:36)
--- NOTE | 2018-03-13 12:41 | P.PNIM ---
Subjective Interval history: Follow up right shoulder displacement status post reduction Patient is resting in bed. She has a washcloth over her eyes to block out the light. She removes it after starting conversation. 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 Patient denies discomfort. Tolerating diet. Physical Exam Vital signs: Last Vital Signs Temp 97.5 F L 03/13/18 12:08 Pulse 107 H 03/13/18 12:08 Resp 16 03/13/18 12:08 BP 161/93 H 03/13/18 12:08 Pulse Ox 93 L 03/13/18 12:08 Intake & Output 03/11/18 03/12/18 03/13/18 03/14/18 06:59 06:59 06:59 06:59 Intake Total 2680 / 2680 460 / 460 1480 / 1480 1118 / 1118 Output Total 850 / 850 1400 / 1400 2150 / 2150 Balance 1830 / 1830 -940 / -940 -670 / -670 1118 / 1118 Weight 40.9 kg Narrative: GENERAL: no acute distress, AAOx3 SKIN: warm and dry HEAD: Normocephalic, atraumatic EYES: No scleral icterus. No injection or drainage. NECK: Supple, trachea midline. No JVD or lymphadenopathy. CARDIOVASCULAR: Regular rate and rhythm without murmurs, gallops, or rubs. RESPIRATORY: Breath sounds equal bilaterally. No accessory muscle use. GASTROINTESTINAL: Abdomen soft, non-tender, nondistended. MUSCULOSKELETAL: deformity bilateral lower extremities, weakness left shoulder at baseline, right shoulder s/p reduction in ED Urinary Catheter Management Indwelling Urethral Catheter: Cath placed during this visit: yes Urethral indwelling: No Insertion date: 03/09/18 Insertion time: 15:26 Results Labs CBC & Chem 7: 03/11/18 07:12 03/11/18 07:12 Assessment and Plan (1) Anterior dislocation of right shoulder: Code(s): S43.014A - Anterior dislocation of right humerus, initial encounter Status: Acute (2) Alteration in self-care ability: Code(s): R53.81 - Other malaise Status: Acute Plan Patient is a very pleasant 77-year-old female with a past medical history significant for polio that has resolved multiple muscle and joint deformities. She is wheelchair-bound at baseline. She is only able to move her right upper extremity for mobility. Patient presented to the hospital status post dislocation of right shoulder secondary to fall injury. Right shoulder dislocation - pain improved s/p reduction in ED, repeat X-ray showing reduction of previously seen dislocation continue pain meds as needed, added Motrin PT eval and treat, rec STR -Concern for being unable to care for herself upon returning home. CM has been consulted for assistance with placement Hyponatremia - slightly improved -recheck in am Hypokalemia - resolved History of polio Patient with residual muscle and bone weakness as well as deformities. She is wheelchair-bound at baseline and is unable to care for herself at present time secondary to her right upper extremity pain in a sling. MDM: self Code: Full GI ppx: PO intake DVT ppx: Heparin SQ Discussed Condition With: RN, patient, CM Discharge Planning: CM assisting with short term rehab placement, awaiting authorization Progress Note: Quality VTE Deep Vein Thrombosis/Pulmonary Embolism Present on Admission: No _ (1) Anterior dislocation of right shoulder Qualifiers: Encounter type: initial encounter Qualified Code(s): S43.014A - Anterior dislocation of right humerus, initial encounter
[2018-03-14] MEDS: Sod Chloride 0.9% Inj 1,000 ML IV.CONT SCH ×2 (03:41→11:00)
[2018-03-14] MEDS: Ibuprofen 600 MG Tablet PO PRN ×2 (03:47→18:19)
[2018-03-14] MEDS: Heparin - SQ 10,000 UNITS/ML Vial SQ SCH ×3 (06:12→22:21)
[2018-03-14] MEDS: Senna/Docusate Sodium 8.6/50 MG Tablet PO SCH ×2 (10:01→22:20)
--- NOTE | 2018-03-14 18:14 | P.PNIM ---
Subjective Interval history: Follow up dislocated right shoulder, hx of polio Patient seen and examined. She reports continued improvement in her right sided shoulder pain status post reduction. Assisted with repositioning patient. Completed peer to peer with patients insurance company and SNF stay has not been authorized. Case management working on LONG-TERM placement. No further needs voiced by patient. Physical Exam Vital signs: Last Vital Signs Temp 97.9 F 03/14/18 15:45 Pulse 105 H 03/14/18 15:45 Resp 16 03/14/18 15:45 BP 135/65 03/14/18 15:45 Pulse Ox 95 03/14/18 15:45 Intake & Output 03/12/18 03/13/18 03/14/18 03/15/18 06:59 06:59 06:59 06:59 Intake Total 460 / 460 1480 / 1480 2598 / 2598 Output Total 1400 / 1400 2150 / 2150 3000 / 3000 Balance -940 / -940 -670 / -670 -402 / -402 Narrative: GENERAL: no acute distress, AAOx3 SKIN: warm and dry HEAD: Normocephalic, atraumatic EYES: No scleral icterus. No injection or drainage. NECK: Supple, trachea midline. No JVD or lymphadenopathy. CARDIOVASCULAR: Regular rate and rhythm without murmurs, gallops, or rubs. RESPIRATORY: Breath sounds equal bilaterally. No accessory muscle use. GASTROINTESTINAL: Abdomen soft, non-tender, nondistended. MUSCULOSKELETAL: deformity bilateral lower extremities, weakness left shoulder at baseline, right shoulder s/p reduction in ED Urinary Catheter Management Indwelling Urethral Catheter: Cath placed during this visit: yes Urethral indwelling: No Insertion date: 03/09/18 Insertion time: 15:26 Results Labs CBC & Chem 7: 03/11/18 07:12 03/11/18 07:12 Assessment and Plan (1) Anterior dislocation of right shoulder: Code(s): S43.014A - Anterior dislocation of right humerus, initial encounter Status: Acute (2) Alteration in self-care ability: Code(s): R53.81 - Other malaise Status: Acute Plan Patient is a very pleasant 77-year-old female with a past medical history significant for polio that has resolved multiple muscle and joint deformities. She is wheelchair-bound at baseline. She is only able to move her right upper extremity for mobility. Patient presented to the hospital status post dislocation of right shoulder secondary to fall injury. Right shoulder dislocation -pain continuing to improve s/p reduction in ED, repeat X-ray showing reduction of previously seen dislocation continue pain meds as needed, added Motrin PT eval and treat, rec STR -Concern for being unable to care for herself upon returning home. CM has been consulted for assistance with placement. Hyponatremia - stable Hypokalemia - resolved History of polio Patient with residual muscle and bone weakness as well as deformities. She is wheelchair-bound at baseline and is unable to care for herself at present time secondary to her right upper extremity pain in a sling. MDM: self Code: Full GI ppx: PO intake DVT ppx: Heparin SQ Discharge Planning: CM assisting with LONG-TERM placement Progress Note: Quality VTE Deep Vein Thrombosis/Pulmonary Embolism Present on Admission: No _ (1) Anterior dislocation of right shoulder Qualifiers: Encounter type: initial encounter Qualified Code(s): S43.014A - Anterior dislocation of right humerus, initial encounter
[2018-03-15] MEDS: Sod Chloride 0.9% Inj 1,000 ML IV.CONT SCH ×3 (00:03→13:15)
[2018-03-15 00:20] VITALS: O2SAT 95
[2018-03-15 05:17] VITALS: RESP 16
[2018-03-15] MEDS: Heparin - SQ 10,000 UNITS/ML Vial SQ SCH ×2 (05:50→14:11)
[2018-03-15 07:50] VITALS: BP 146/69; PULSE 78; TEMP 97.8
--- NOTE | 2018-03-15 08:06 | P.PN ---
Physical Exam Vital signs: Vital Signs 03/14/18 08:18 03/14/18 15:45 03/14/18 20:00 Temperature 97.6 F 97.9 F 98.0 F Pulse Rate 97 H 105 H 106 H Respiratory Rate 16 16 Blood Pressure 170/90 H 135/65 125/76 Pulse Oximetry 97 95 94 L 03/15/18 00:00 03/15/18 04:00 03/15/18 07:47 Temperature 97.5 F L 97.7 F 97.8 F Pulse Rate 109 H 89 78 Respiratory Rate 17 16 16 Blood Pressure 139/73 137/70 146/69 H Pulse Oximetry 95 95 95 Intake & Output 03/14/18 03/15/18 03/15/18 18:59 06:59 18:59 Intake Total 1000 / 1000 1000 / 1000 Balance 1000 / 1000 1000 / 1000 Intake: IV 1000 / 1000 1000 / 1000 NS Inj 1,000 ML @ 75 mls/hr IV. 1000 / 1000 1000 / 1000 CONT .[id number] [facility] Rx#:[id number] Other: Date of Last Bowel Movement 03/08/18 03/14/18 - Urinary Catheter Management Indwelling Urethral Catheter Cath placed during this visit: yes Urethral indwelling: No Reason for continuing: Acute urinary retention Insertion date: 03/09/18 Insertion time: 15:26 Results - Labs CBC & Chem 7: 03/11/18 07:12 03/11/18 07:12 Assessment and Plan - Assessment (1) Anterior dislocation of right shoulder Code(s): S43.014A - Anterior dislocation of right humerus, initial encounter Status: Acute (2) Alteration in self-care ability Code(s): R53.81 - Other malaise Status: Acute (1) Anterior dislocation of right shoulder Qualifiers: Encounter type: initial encounter Qualified Code(s): S43.014A - Anterior dislocation of right humerus, initial encounter
[2018-03-15] MEDS: Ibuprofen 600 MG Tablet PO PRN (08:34)
--- NOTE | 2018-03-15 11:21 | P.DCO ---
- Diagnosis (1) Anterior dislocation of right shoulder Status: Acute (2) Alteration in self-care ability Status: Acute (3) Impaired mobility and ADLs Status: Acute - Occupational Therapy Order: Evaluate and treat, Improve ADL, Gross motor coordination - Home Health Nursing Order: Medical education, Signs/symptoms of disease process, Nursing assessment with vital signs - Case Management Consult Case Management Consult-Home Health: Yes - Certification I have seen patient Sheyla Leon on 03/15/18. My clinical findings support the need for the requested home health care services because: Limited mobility due to disease progression, Deconditioned with increased weakness, Limited ability to care for self, High risk of falls I certify that my clinical findings support that this patient is homebound because: Unsteady gait/balance, Unsafe to leave home unassisted, Unable to use public transportation (1) Anterior dislocation of right shoulder Qualifiers: Encounter type: initial encounter Qualified Code(s): S43.014A - Anterior dislocation of right humerus, initial encounter
[2018-03-15] MEDS: Senna/Docusate Sodium 8.6/50 MG Tablet PO SCH (11:52)
--- NOTE | 2018-03-15 15:36 | P.DS ---
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 She is able to care for herself and uses a wheelchair to get around. She can not move her legs at baseline and her right arm is the primary one that functions for her to get around. 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 The patient reports that at around 11:00 AM the patient was sitting on her bed when she reached behind her and attempting to hang something on the back of her wheelchair she fell forward onto her out stretched arm, and noticed immediate pain to her right shoulder. She denies head injury or LOC. She denies any other injuries. Her pain is 7 out of 10 following pain medications, worse with movements and palpation. She denies head neck or back pain or injury. No chest pain or dyspnea. No abdominal pain. She states that she uses her right arm primarily to care for herself and her . She was found to have dislocation of her right shoulder. In the ED her shoulder was reset. she is no longer have numbness and tingling in her fingers. Patient update on day of discharge: Follow up for shoulder dislocation s/p reduction, inability to care for self. The patient has no new medical complaints. She reports continued pain at the right shoulder, relieved by pain medications. She is looking forward to going to [facility]. Denies any fevers/chills, headache, lightheadedness, dizziness, chest pain, shortness of breath, or abdominal complaints. DS: Diagnosis - Discharge Diagnosis (1) Anterior dislocation of right shoulder Status: Acute (2) Alteration in self-care ability Status: Acute (3) Impaired mobility and ADLs Status: Acute DS: Medications - Discharge Medications Prescriptions: hydrocodone-acetaminophen 1 tab PO Q6H PRN #12 tab PRN Reason: intractable pain ibuprofen 600 mg PO Q8H PRN #21 tab PRN Reason: Pain DS: Summary Hospital Course: Patient is a very pleasant 77-year-old female with a past medical history significant for polio that has resolved multiple muscle and joint deformities. She is wheelchair-bound at baseline. She is only able to move her right upper extremity for mobility. Patient presented to the hospital status post dislocation of right shoulder secondary to fall injury. Right shoulder dislocation: s/p fall. Dislocation s/p reduction in ED, repeat X- ray showing reduction of previously seen dislocation. Given pain meds with tylenol, motrin, and norco prn. Pain improving. PT recommending rehab for concern for being unable to care for herself upon returning home. Patient also has history of polio diagnosed age 4 and is chronically wheelchair bound. Patient with residual muscle and bone weakness as well as deformities. She is wheelchair-bound at baseline and is unable to care for herself at present time secondary to her right upper extremity pain and in a sling. Case management has arranged for discharge to [facility]. - Time Spent with Patient Total time spent providing and/or coordinating discharge services: Greater than 30 minutes - Quality: VTE Deep Vein Thrombosis/Pulmonary Embolism Present on Admission: No Exam Vital signs: Vital Signs 03/14/18 15:45 03/14/18 20:00 03/15/18 00:00 Temperature 97.9 F 98.0 F 97.5 F L Pulse Rate 105 H 106 H 109 H Respiratory Rate 16 16 17 Blood Pressure 135/65 125/76 139/73 Pulse Oximetry 95 94 L 95 03/15/18 04:00 03/15/18 07:47 Temperature 97.7 F 97.8 F Pulse Rate 89 78 Respiratory Rate 16 16 Blood Pressure 137/70 146/69 H Pulse Oximetry 95 95 Intake & Output 03/14/18 03/15/18 03/15/18 18:59 06:59 18:59 Intake Total 1000 / 1000 1000 / 1000 1000 / 1000 Balance 1000 / 1000 1000 / 1000 1000 / 1000 Weight 40.9 kg Intake: IV 1000 / 1000 1000 / 1000 1000 / 1000 NS Inj 1,000 ML @ 75 mls/hr IV. 1000 / 1000 1000 / 1000 1000 / 1000 CONT .[id number] Rx#:[id number] Other: Date of Last Bowel Movement 03/08/18 03/14/18 Weight On Admission 40.9 kg Narrative: GENERAL: Well-nourished, well-developed pleasant thin elderly female patient in [facility]. SKIN: Warm and dry. No rash. HEENT: Normocephalic. Atraumatic. Pupils equal and round. Mucous membranes pink and moist. CARDIOVASCULAR: Regular rate and rhythm. No murmur appreciated. RESPIRATORY: No accessory muscle use. Clear to auscultation. Breath sounds equal bilaterally. GASTROINTESTINAL: Abdomen soft, non-tender, nondistended. Normoactive bowel sounds x4. MUSCULOSKELETAL: Multiple deformities throughout lower extremities. Right shoulder with some ecchymosis, limited ROM secondary to pain. NEUROLOGICAL: Awake and alert. No obvious cranial nerve deficits. Normal speech. PSYCHIATRIC: Appropriate mood and affect; insight and judgment normal. Results Procedures completed during hospitalization: None. - Impressions ITS Impressions Chest X-Ray 03/09/18 14:50 CONCLUSION: No acute cardiopulmonary disease. Humerus X-Ray 03/09/18 14:50 CONCLUSION: Anterior dislocation of the right shoulder. Shoulder X-Ray 03/09/18 17:02 CONCLUSION: Reduction of the previously seen dislocation. Discharge Plan - Discharge Disposition Patient Disposition: 04 [facility] - Discharge Condition Condition: Stable - Discharge Order Discharge Orders: Discharge Order (Routine); Ordered 03/15/18 Ordered By: Tasia Calzada - Discharge Details Anticipated Discharge Date: 03/15/18 - Physicians Team Primary Care Provider: UNKNOWN, Attending Provider: Jackie Hook Other Providers: [employer] ; [facility] ; [facility] ; [facility] ; [facility]ency
== END 2018-03-15 16:19 ==
LOC: NEDA 14:17 → NEPD 14:17 → NEDA 19:03 → NEPHCDU 19:23
PROVIDERS: ADMIT Internal Medicine; ATTEND Internal Medicine